=== PATIENT | male | born 1940 | race Caucasian/White ===

== ENCOUNTER → 2017-05-04 | Outpatient (CLI) | payer MEDICARE, OTHER ==
--- NOTE | 2017-05-04 11:49 | REP ---
KUB, ONE VIEW: HISTORY: Kidney stones. A small amount of air is present in small and large intestine. There are no air fluid levels or dilated loops of intestine. There is no pneumoperitoneum. Calcifications are present overlying the kidneys likely representing nephrolithiasis. Degenerative change is present in the spine. IMPRESSION: 1. Nonspecific bowel gas pattern. 2. There are calcifications overlying the kidneys likely representing nephrolithiasis. Signed by Flaco Barraza MD 05/04/2017 11:50 A
== END ==
LOC: M SMT 11:02
PROVIDERS: ATTEND Specialist
DX: N20.0 Calculus of kidney (principal)
CPT/HCPCS: 74000; G0463